=== PATIENT | female | born 1940 | race Caucasian/White ===

== ENCOUNTER 2016-04-18 11:36 | Observation (INO) | payer MEDICARE, BC ==
[~2016-04-18 11:36] MED LIST: ACTONEL150 MG PO; ADVAIR 2501 DISK W/D IH; ADVAIR 25028 BLISTE1 INH; ALEVE220 M1 PO; ANTIVERT PO; ANTIVERT25 MG PO; BENAZEPRIL-HCT1 EAC3 PO; BETADINE; CALCIUM 500 MG1 TAB PO; CALCIUM500 M3 PO; GLUCOSAMINE & C1 CAP PO; GLUCOSAMINE PO; IRON1 TA1 PO; IRON18 M1 PO; MAXZIDE1 TAB PO; MULTIVITAMINS1 EAC6 PO; PREMARIN0.625 MG PO; PRILOSEC OTC20 M1; PROVERA2.5 MG PO; SANCTURA XR60 MG PO; TOPROL XL50 M1 PO; TOPROL XL50 MG PO; VESICARE5 M1 PO; VITAMIN A PO; VITAMIN C PO; VITAMIN C500 M5 PO; VITAMIN D PO; VITAMIN D400 UNI5 PO; VITAMIN E PO; VITAMIN E400 UNIT PO; [UNRECOGNIZED DRUG - OTHER] PO
[2016-04-18] MEDS ORDERED: XALATAN2.5 M1 OP (11:53)
[2016-04-18] MEDS ORDERED: DORZOLAMIDE HCL10 M1 OP (11:54)
[2016-04-18] MEDS ORDERED: OFLOXACIN5 M2 OP (11:56)
[2016-04-18] MEDS ORDERED: OMNIPRED10 M1 OP (11:57)
[2016-04-18] MEDS ORDERED: TAMOXIFEN CITRA20 M1 PO (11:58)
[2016-04-18 12:03] LABS: BASO % 0.2 % (0-2); HCT-HEMATOCRIT 42.1 % (34.0-49.0); HGB-HEMOGLOBIN 14.2 gm/dl (12.0-15.5); IMMATURE GRANULOCYTES ABSOLUTE 0.07 tho/cmm (0-0.03); IMMATURE GRANULOCYTES PERCENT 0.4 % (0-0.3); LYMPH % 11.2 % (20-45); MCHC MEAN CORPUSCULAR HGB CONC 33.7 % (32.0-36.0); MCV (MEAN CELL VOLUME) 97.9 fl (82.0-96.0); MEAN PLATELET VOLUME 10.3 cmc (9.4-12.4); MONO % 6.6 % (0-12); MONOCYTE ABSOLUTE COUNT 1.2 tho/cmm (0.0-1.2); NEUTROPHIL ABSOLUTE COUNT 14.7 tho/cmm (1.6-8.0); NEUTROPHIL-AUTOMATED 14.7 tho/cmm (1.6-8.0); NEUTROPHILS % 81.6 % (40-80); PLATELET COUNT 249 tho/cmm (150-450); RED CELL DISTRIBUTION WIDTH 13.9 % (12.4-16.4)
[2016-04-18 12:19] LABS: ANION GAP 11 mmol/L (0-20); BLOOD UREA NITROGEN 16 mg/dl (6-24); CALCIUM 8.7 mg/dl (8.5-10.5); CARBON DIOXIDE-VENOUS 28 mmol/L (22-32); CHLORIDE 104 mmol/l (96-110); CREATININE 1.13 mg/dl (0.50-1.10); GLUCOSE 141 mg/dL (70-110); MAGNESIUM 2.4 mg/dl (1.3-2.6); POTASSIUM 3.6 mmol/L (3.7-5.1); SODIUM 139 mmol/L (135-145); eGFR VALUE FOR BLACK 55 mL/Min
[2016-04-18 12:23] LABS: TSH-THYROID STIMULATING HORM. 1.58 uIU/ml (0.40-3.80)
[2016-04-18 12:56] LABS: PROCALCITONIN <0.05 ng/ml (0.05-0.09)
[2016-04-18] MEDS ORDERED: [UNRECOGNIZED DRUG - CODE] PO (13:04)
[2016-04-18 14:32] LABS: ALB/GLOB RATIO 0.9 (0.8-2.0); ALBUMIN 3.3 g/dl (3.5-5.0); BILIRUBIN,DIRECT 0.2 mg/dl (0.0-0.3); BILIRUBIN,INDIRECT 0.7 mg/dL (0.0-1.0); BILIRUBIN,TOTAL 0.9 mg/dl (0-1.5)
[2016-04-18 15:23] LABS: URINE BILIRUBIN SMALL (NEG); URINE BLOOD NEGATIVE (NEG); URINE GLUCOSE (UA) NEGATIVE (NEG); URINE KETONE SMALL (NEG); URINE LEUKOCYTE ESTERASE POSITIVE (NEG); URINE NITRITE NEGATIVE (NEG); URINE PROTEIN MODERATE (NEG); URINE SPECIFIC GRAVITY 1.015 (1.003-1.030)
[2016-04-18 15:25] LABS: URINE APPEARANCE HAZY; URINE COLOR DARK YELLOW
[2016-04-18 15:37] LABS: URINE MUCUS 2+
[2016-04-18 15:39] LABS: URINE BACTERIA 1+
[2016-04-18 19:39] LABS: ALB/GLOB RATIO 0.8 (0.8-2.0); ALBUMIN 3.3 g/dl (3.5-5.0); ALKALINE PHOSPHATASE 50 U/L (33-138); ANION GAP 10 mmol/L (0-20); AST/SGOT 13 U/L (10-40); BILIRUBIN,TOTAL 0.8 mg/dl (0-1.5); BLOOD UREA NITROGEN 15 mg/dl (6-24); CALCIUM 8.2 mg/dl (8.5-10.5); CARBON DIOXIDE-VENOUS 27 mmol/L (22-32); CHLORIDE 107 mmol/l (96-110); CREATININE 1.02 mg/dl (0.50-1.10); GLUCOSE 158 mg/dL (70-110); POTASSIUM 3.3 mmol/L (3.7-5.1); SODIUM 141 mmol/L (135-145); eGFR VALUE FOR BLACK 63 mL/Min
[2016-04-18 19:41] LABS: ALT/SGPT 18 U/L (12-78)
[2016-04-19 15:36] LABS: BASO % 0.1 % (0-2); EOS % 0.2 % (0-7); HCT-HEMATOCRIT 33.5 % (34.0-49.0); HGB-HEMOGLOBIN 10.9 gm/dl (12.0-15.5); IMMATURE GRANULOCYTES ABSOLUTE 0.04 tho/cmm (0-0.03); IMMATURE GRANULOCYTES PERCENT 0.3 % (0-0.3); LYMPH % 16.1 % (20-45); LYMPH ABSOLUTE COUNT 1.9 tho/cmm (0.8-4.5); MCH (MEAN CORPUSCULAR HGB) 32.2 pg (28.0-32.0); MCHC MEAN CORPUSCULAR HGB CONC 32.5 % (32.0-36.0); MCV (MEAN CELL VOLUME) 99.1 fl (82.0-96.0); MEAN PLATELET VOLUME 10.5 cmc (9.4-12.4); MONO % 6.5 % (0-12); MONOCYTE ABSOLUTE COUNT 0.8 tho/cmm (0.0-1.2); NEUTROPHIL ABSOLUTE COUNT 8.9 tho/cmm (1.6-8.0); NEUTROPHIL-AUTOMATED 8.9 tho/cmm (1.6-8.0); NEUTROPHILS % 76.8 % (40-80); PLATELET COUNT 198 tho/cmm (150-450); RED BLOOD COUNT 3.38 mil/cmm (4.00-5.20); RED CELL DISTRIBUTION WIDTH 14.3 % (12.4-16.4); WHITE BLOOD COUNT 11.5 tho/cmm (4.0-10.0)
[2016-04-19 15:48] LABS: ANION GAP 10 mmol/L (0-20); BLOOD UREA NITROGEN 10 mg/dl (6-24); CALCIUM 6.9 mg/dl (8.5-10.5); CARBON DIOXIDE-VENOUS 23 mmol/L (22-32); CHLORIDE 118 mmol/l (96-110); CREATININE 0.82 mg/dl (0.50-1.10); GLUCOSE 98 mg/dL (70-110); POTASSIUM 4.1 mmol/L (3.7-5.1); SODIUM 147 mmol/L (135-145); eGFR VALUE FOR BLACK 82 mL/Min
[2016-04-20] MEDS ORDERED: LEVAQUIN750 M1 PO (14:16)
[2016-04-20] MEDS ORDERED: NICOTINE PATCH1 EACH TP (14:19)
[2016-04-20] MEDS ORDERED: CARDIZEM CD180 M1 PO (14:24)
[2016-04-20] MEDS ORDERED: MUCINEX1200 MG PO (14:25)
[2016-04-20] MEDS ORDERED: ELIQUIS5 M1 PO (14:31)
[2016-04-20] MEDS ORDERED: SPIRIVA RESPIMAT4 G1 INH (14:33)
[2016-04-20] MEDS ORDERED: VENTOLIN HFA18 G2 PO (14:34)
== END 2016-04-20 16:49 ==
LOC: EDMED 11:36 → EMR2 16:17 → PCUA 17:12
PROVIDERS: Emergency Medicine; Hospitalist; Internal Medicine; ADMIT Hospitalist
PROC: 05HM33Z Insertion of Infusion Device into Right Internal Jugular Vein, Percutaneous Approach (ICD-10-PCS; principal; 2016-04-18)
DX: I47.1 Supraventricular tachycardia (principal); I48.0 Paroxysmal atrial fibrillation; D72.829 Elevated white blood cell count, unspecified; R79.1 Abnormal coagulation profile; I10 Essential (primary) hypertension; J44.9 Chronic obstructive pulmonary disease, unspecified; I34.0 Nonrheumatic mitral (valve) insufficiency; F17.210 Nicotine dependence, cigarettes, uncomplicated; Z79.899 Other long term (current) drug therapy; Z85.3 Personal history of malignant neoplasm of breast; Z98.49 Cataract extraction status, unspecified eye; Z98.890 Other specified postprocedural states
CPT/HCPCS: C1751; G0378; J1160; J1650; J1956; J2543; J3370; J7030; J7050; Q9967